=== PATIENT | female | born 1975 | race Two or more races ===

== ENCOUNTER 2018-09-28 18:58 | Emergency (ER) | payer OTHER ==
[~2018-09-28] VITALS: Ht 154.9 cm; Wt 61.6 kg
[2018-09-28 19:05] VITALS: BP 138/78
== END 2018-09-28 20:16 | disposition home or self-care (01) ==
LOC: ED 20:10
DX: S29.012A Strain of muscle and tendon of back wall of thorax, initial encounter (principal); V43.63XA Car passenger injured in collision with pick-up truck in traffic accident, initial encounter; Y93.89 Activity, other specified; Y92.89 Other specified places as the place of occurrence of the external cause; Y99.8 Other external cause status
CPT/HCPCS: 72072; 99283